=== PATIENT | female | born 1995 | race Caucasian/White ===

== ENCOUNTER 2025-02-20 09:59 | Outpatient (CLI) | payer OTHER | END 2025-02-20 10:00 | disposition home or self-care (01) | LOC: DTY/OP 09:59 | PROVIDERS: ATTEND Family Medicine | DX: E66.9 Obesity, unspecified (principal); E03.9 Hypothyroidism, unspecified; Z68.38 Body mass index [BMI] 38.0-38.9, adult | CPT/HCPCS: 97802 ==